=== PATIENT | male | born 2000 | race Caucasian/White ===

== ENCOUNTER 2023-08-07 22:36 | Emergency (ER) | payer OTHER | END 2023-08-07 23:34 | disposition home or self-care (01) | LOC: NAV ERS 22:36 | DX: S63.610A Unspecified sprain of right index finger, initial encounter (principal); W22.8XXA Striking against or struck by other objects, initial encounter ==

== ENCOUNTER 2024-05-23 20:46 | Emergency (ER) | payer SELFPAY ==
[2024-05-23] MEDS ORDERED: Bacitracin 1 PK ONE (21:35)
[2024-05-23] MEDS ORDERED: Boostrix 0.5 ML (Tdap) VIAL (>/=7 yrs of age) ONE (21:35)
== END 2024-05-23 23:54 | disposition home or self-care (01) ==
LOC: NAV ERS 20:46
DX: S62.610A Displaced fracture of proximal phalanx of right index finger, initial encounter for closed fracture (principal); S61.012A Laceration without foreign body of left thumb without damage to nail, initial encounter; S20.221A Contusion of right back wall of thorax, initial encounter; Z23 Encounter for immunization; Y35.811A Legal intervention involving manhandling, law enforcement official injured, initial encounter
CPT/HCPCS: 90471; 90715